=== PATIENT | female | born 2000 | race Caucasian/White ===

== ENCOUNTER 2019-01-25 15:47 | Outpatient (CLI) | payer OTHER, SELFPAY ==
[2019-01-25 17:02] LABS: #Basophils 0.1 thou/uL (0.0-0.2); #Eosinphils 0.2 thou/uL (0.0-0.7); #Lymphocytes 2.4 thou/uL (1.20-3.40); #Monocytes 0.9 thou/uL (0.11-0.59); #Neutrophils 3.6 thou/uL (1.40-6.50); %Basophils 1.4 % (0.0-1.0); %Monocytes 12.1 % (0.0-4.0); %Neutrophils 50.4 % (31.0-61.0); Hemoglobin 13.3 g/dL (12.0-16.0); Mean Corpuscular HGB CONC 31.2 g/dL (32.0-36.0); Mean Corpuscular Hemoglobin 27.8 pg (25.0-35.0); Mean Corpuscular Volume 89.1 fL (78.0-98.0); Mean Platelet Volume 7.6 fL (7.4-10.4); Platelet Count 305 thou/uL (130-400); RBC Distribution Width 12.8 % (11.5-14.5); Red Blood Cell (RBC) Count 4.79 mill/uL (4.00-5.20); White Blood Cell (WBC) Count 7.2 thou/uL (4.8-10.8)
[2019-01-25 17:43] LABS: HCG, Total Quant Less than 1.20 mIU/mL (See Ranges); Thyroid Stimulating Hormone 0.9375 uIU/mL (0.35-4.94)
[2019-01-25 22:52] LABS: Insulin 81.3 uU/mL (3.0-25.0)
== END 2019-01-25 15:48 | disposition home or self-care (01) ==
LOC: MADLABBHPM 15:47
PROVIDERS: ATTEND Family Medicine
DX: E28.2 Polycystic ovarian syndrome (principal); N92.1 Excessive and frequent menstruation with irregular cycle
CPT/HCPCS: 36415; 83525; 84403; 84443; 84702; 85025

== ENCOUNTER 2020-08-27 14:14 | Outpatient (CLI) | payer OTHER | END 2020-08-27 14:15 | disposition home or self-care (01) | LOC: MADLAB 14:14 | DX: Z00.00 Encounter for general adult medical examination without abnormal findings (principal) | CPT/HCPCS: 80305 ==

== ENCOUNTER 2020-08-30 21:01 | Emergency (ER) | payer OTHER ==
[2020-08-30 21:28] LABS: Bilirubin Negative (Negative); Blood, Urine Negative (Negative); Clarity Clear (Clear); Glucose, Urine (Dipstick) Negative (Negative); Ketone, Urine Negative (Negative); Leukocyte Negative (Negative); Nitrite Negative (Negative); Protein, Urine (Dipstick) Negative (Neg-Trace); Specific Gravity, Urine 1.025 (1.005-1.030); Urobilinogen 0.2 mg/dL (Less than 2)
[2020-08-30 21:29] LABS: Pregnancy Test - Urine (BHCG) Negative (Negative)
[2020-08-30 21:30] LABS: Pregu Control Background? CLEAR/WHITE (CLR/WHITE); Pregu Control Bar Appear? YES (CONTROL BAR); Specific Gravity 1.025 (1.002-1.036)
== END 2020-08-30 21:41 | disposition home or self-care (01) ==
LOC: MADERS 21:01
DX: M54.5 Low back pain (principal); R10.32 Left lower quadrant pain; E28.2 Polycystic ovarian syndrome; F32.9 Major depressive disorder, single episode, unspecified
CPT/HCPCS: 81003; 81025; 99283

== ENCOUNTER 2021-09-02 15:06 | Outpatient (CLI) | payer OTHER ==
[2021-09-02 15:32] LABS: #Basophils 0.1 thou/uL (0.0-0.2); #Eosinphils 0.2 thou/uL (0.0-0.7); #Lymphocytes 3.1 thou/uL (1.20-3.40); #Monocytes 0.6 thou/uL (0.11-0.59); #Neutrophils 5.2 thou/uL (1.40-6.50); %Basophils 1.3 % (0.0-1.0); %Eosinophils 2.5 % (0.0-10.0); %Lymphocytes 33.9 % (21.0-51.0); %Monocytes 6.4 % (0.0-10.0); Hemoglobin 13.4 g/dL (12.0-16.0); Mean Corpuscular HGB CONC 30.7 g/dL (32.0-36.0); Mean Corpuscular Hemoglobin 28.2 pg (27.0-31.0); Mean Corpuscular Volume 91.9 fL (78.0-98.0); Mean Platelet Volume 7.1 fL (7.4-10.4); Platelet Count 283 thou/uL (130-400); RBC Distribution Width 12.8 % (11.5-14.5); Red Blood Cell (RBC) Count 4.76 mill/uL (4.20-5.40); White Blood Cell (WBC) Count 9.2 thou/uL (4.8-10.8)
[2021-09-02 21:48] LABS: Albumin (w/Testosterone Panel) 3.9 g/dL
[2021-09-02 22:11] LABS: Sex Hormone Binding Globulin 45.6 nmol/L (34-148); Testosterone, Free 6.2 pg/mL (1.1-9.2); Testosterone, Total 40.9 ng/dL (14-53)
[2021-09-03 15:00] LABS: Vitamin D, 25 Hydroxy 20.1 ng/ml (> 30.0)
[2021-09-03 17:48] LABS: Free T4 (Free Thyroxine) 0.91 ng/dL (0.70-1.48)
== END 2021-09-02 15:07 | disposition home or self-care (01) ==
LOC: MADLAB 15:06
PROVIDERS: ATTEND Obstetrics & Gynecology Reproductive Endocrinology
DX: Z13.220 Encounter for screening for lipoid disorders (principal); Z13.29 Encounter for screening for other suspected endocrine disorder; E88.81 Metabolic syndrome and other insulin resistance
CPT/HCPCS: 36415; 80061; 82306; 82565; 82627; 82951; 83036; 83498; 83516; 83525; 84146; 84270; 84403; 84439; 84443; 84450; 84460; 85025; 88230; 88262; 88291

== ENCOUNTER 2023-06-19 19:26 | Emergency (ER) | payer OTHER ==
[2023-06-19] MEDS ORDERED: Acetaminophen 500 MG TAB ONE (20:37)
== END 2023-06-19 20:50 | disposition home or self-care (01) ==
LOC: EEVIPCON 19:26 → MADERS 19:26
DX: S16.1XXA Strain of muscle, fascia and tendon at neck level, initial encounter (principal); S09.90XA Unspecified injury of head, initial encounter; M54.6 Pain in thoracic spine; R00.0 Tachycardia, unspecified; Y04.0XXA Assault by unarmed brawl or fight, initial encounter
CPT/HCPCS: 70450

== ENCOUNTER 2023-10-23 16:06 | Emergency (ER) | payer OTHER ==
[2023-10-23 16:37] LABS: Bilirubin Negative (Negative); Blood, Urine Negative (Negative); Clarity Slightly Cloudy (Clear); Glucose, Urine (Dipstick) Negative (Negative); Ketone, Urine Negative (Negative); Leukocyte Small (Negative); Nitrite Negative (Negative); Protein, Urine (Dipstick) Negative (Neg-Trace); Urobilinogen 0.2 mg/dL (Less than 2); pH, Urine 5.5 (5.0-9.0)
[2023-10-23 16:39] LABS: CAUTI Indications for Culture Pelvic or flank pain
[2023-10-23 16:41] LABS: RBC/HPF 0-3 HPF (0-3)
[2023-10-23 16:42] LABS: Bacteria/HPF 4+ HPF (None Seen); Urine Culture Reflex No No
[2023-10-23 17:04] LABS: Pregnancy Test - Urine (BHCG) Negative (Negative); Pregu Control Background? CLEAR/WHITE (CLR/WHITE); Pregu Control Bar Appear? YES (CONTROL BAR)
[2023-10-23] MEDS ORDERED: Nitrofurantoin Monohyd/M-Cryst 100 MG CAP ONE (17:12)
== END 2023-10-23 17:12 | disposition home or self-care (01) ==
LOC: MADERS 16:06
DX: N39.0 Urinary tract infection, site not specified (principal)
CPT/HCPCS: 81001; 81025; 99283

== ENCOUNTER 2024-09-18 19:53 | Emergency (ER) | payer OTHER ==
[2024-09-18 20:29] LABS: Bilirubin Negative (Negative); Blood, Urine Negative (Negative); CAUTI Indications for Culture Dysuria,urgency,freq; Clarity Clear (Clear); Glucose, Urine (Dipstick) Negative (Negative); Ketone, Urine Trace mg/dL (Negative); Leukocyte Negative (Negative); Mucous/LPF 2+ LPF (<2+); Nitrite Negative (Negative); Protein, Urine (Dipstick) Negative (Neg-Trace); RBC/HPF None Seen HPF (0-3); Specific Gravity, Urine 1.028 (1.002-1.036); Squamous Epithelial 0-3 HPF (0-3); Urobilinogen 0.2 mg/dL (Less than 2); WBC/HPF 0-3 HPF (0-3)
[2024-09-18 20:30] LABS: Pregnancy Test - Urine (BHCG) Negative (Negative); Pregu Control Background? CLEAR/WHITE (CLR/WHITE); Pregu Control Bar Appear? YES (CONTROL BAR); Specific Gravity 1.028 (1.002-1.036); Urine Culture Reflex No No
[2024-09-18] MEDS ORDERED: Lidocaine 1% PF 5 ML VIAL ONE (20:49)
[2024-09-18] MEDS ORDERED: cefTRIAXone (ROCEPHIN) 500 MG VIAL ONE (20:49)
[2024-09-19 15:29] LABS: Chlamydia by PCR, Vaginal Swab Not Detected (NotDetected); GC by PCR, Vaginal Swab Not Detected (NotDetected)
== END 2024-09-18 21:26 | disposition home or self-care (01) ==
LOC: MADERS 19:53
DX: R10.2 Pelvic and perineal pain (principal)
CPT/HCPCS: 81001; 81025; 87480; 87491; 87510; 87591; 87660; 96372; 99283; J0696

== ENCOUNTER 2025-06-21 18:20 | Emergency (ER) | payer MEDICAID, OTHER ==
[2025-06-21 19:15] LABS: Glucose, Urine (Dipstick) Negative (Negative); Leukocyte Trace (Negative); Protein, Urine (Dipstick) Negative (Neg-Trace); Specific Gravity, Urine 1.015 (1.005-1.030)
[2025-06-21 19:27] LABS: Bacteria/HPF Rare-Few HPF (None Seen); CAUTI Indications for Culture Dysuria,urgency,freq; RBC/HPF None Seen HPF (0-3); Urine Culture Reflex No No
[2025-06-21 19:48] LABS: #Basophils 0.1 thou/uL (0.0-0.2); #Eosinophils 0.3 thou/uL (0.0-0.7); #Lymphocytes 2.8 thou/uL (1.20-3.40); #Monocytes 1.3 thou/uL (0.11-0.59); #Neutrophils 10.6 thou/uL (1.40-6.50); %Basophils 0.7 % (0.0-1.0); %Eosinophils 1.9 % (0.0-10.0); %Lymphocytes 18.4 % (21.0-51.0); %Monocytes 8.4 % (0.0-10.0); %Neutrophils 70.7 % (42.0-75.0); Hematocrit 36.3 % (36.0-47.0); Hemoglobin 11.9 g/dL (12.0-16.0); Mean Corpuscular Hemoglobin 29.6 pg (27.0-31.0); Mean Corpuscular Volume 90.2 fl (78.0-98.0); Platelet Count 313 10x3/uL (130-400); Red Blood Cell (RBC) Count 4.02 mill/uL (4.20-5.40); White Blood Cell (WBC) Count 15.0 10x3/uL (4.8-10.8)
[2025-06-21 20:07] LABS: ALT (SGPT) 21 U/L (Less than 34); AST (SGOT) 23 U/L (11-34); Albumin 3.3 g/dL (3.1-4.5); Alkaline Phosphatase 80 U/L (40-110); Anion Gap 15 mmol/L (10-20); BUN (Urea Nitrogen) 9 mg/dL (7.0-18.7); Bilirubin, Total 0.2 mg/dL (0.3-1.2); Calc. Creatinine Clearance 0 mL/min (70-130); Calcium 8.8 mg/dL (7.8-10.44); Carbon Dioxide 22 mmol/L (22-29); Chloride 106 mmol/L (98-107); Globulin 3.8 g/dL (2.4-3.5); Glucose 83 mg/dL (70-105); Magnesium 1.7 mg/dL (1.6-2.6); Potassium 3.3 mmol/L (3.5-5.1); Sodium 140 mmol/L (136-145)
== END 2025-06-21 21:29 | disposition home or self-care (01) ==
LOC: MADERS 18:20
DX: O26.893 Other specified pregnancy related conditions, third trimester (principal); R10.2 Pelvic and perineal pain; O99.891 Other specified diseases and conditions complicating pregnancy; E86.0 Dehydration; R51.9 Headache, unspecified; O21.2 Late vomiting of pregnancy; O99.284 Endocrine, nutritional and metabolic diseases complicating childbirth; E87.6 Hypokalemia; Z3A.28 28 weeks gestation of pregnancy
CPT/HCPCS: 80053; 81001; 83735; 85025; 96360